=== PATIENT | female | born 1985 | race Caucasian/White ===

== ENCOUNTER 2019-03-30 22:04 | Emergency (ER) | payer OTHER ==
[~2019-03-30] VITALS: Ht 160 cm; Wt 58.1 kg
[2019-03-30 23:29] VITALS: BP 134/80
== END 2019-03-30 23:35 | disposition home or self-care (01) ==
LOC: ER 22:04
DX: J10.1 Influenza due to other identified influenza virus with other respiratory manifestations (principal)

== ENCOUNTER 2019-04-03 00:09 | Emergency (ER) | payer OTHER ==
[~2019-04-03] VITALS: Ht 152.4 cm; Wt 58.1 kg
--- NOTE | ~2019-04-03 | EKG ---
[facility] [place] [address] ELECTROCARDIOGRAM REPORT Name: BEKAH AYON Room #: [facility]#: [id number] Admission: 04/03/19 Attend Phys: Discharge: Date of : 83 Report #: [id number] THIS REPORT FOR: cc: LEANDRO - Telma family physician/PCP LEANDRO - Telma family physician/PCP Octavio Cunningham MD ~ THIS REPORT FOR: //name// [facility] ED Test Date: 2019-04-03 Test Time: 00:42:42 Pat Name: BEKAH BURK Department: Room: Gender: [employer]: no : 1985 Requested By: Dominik Dillon Order Number: [id number] MD: Measurements Intervals Clements Rate: 57 P: -3 CO: 186 QRS: 23 QRSD: 95 T: 22 QT: 429 QTc: 418 Interpretive Statements Sinus rhythm No previous ECG available for comparison [email or web address] By: 004 Octavio Cunningham MD /EPI
[2019-04-03 01:18] LABS: ABSOLUTE NEUTROPHILS 2.5 thou/uL (1.4-8.2); BASOPHILS 0.2 % (0.0-2.0); EOSINOPHILS 1.6 % (0.0-3.0); HEMATOCRIT 38.4 % (37.0-47.0); HEMOGLOBIN 12.7 gm/dL (12.0-15.0); MCH 28.3 pg (26.0-34.0); MCHC 33.1 g/dL (28.0-37.0); MCV 85.4 fL (80.0-100.0); MONOCYTES 5.7 % (1.0-8.0); PLATELET COUNT 340 thou/uL (150-400); POLYS 38.5 % (36.0-66.0); RDW 13.2 % (10.5-14.5); WBC 6.6 thou/uL (4.0-11.0)
[2019-04-03 01:23] LABS: ANION GAP 11 mmol/L (7-16); BUN 10 mg/dL (7-18); CALCIUM 8.8 mg/dL (8.5-10.1); CHLORIDE 102 mmol/L (98-107); CO2 26 mmol/L (21-32); CREATININE 0.5 mg/dL (0.6-1.0); GLUCOSE 82 mg/dL (74-106); POTASSIUM 3.7 mmol/L (3.5-5.1); SODIUM 139 mmol/L (136-145)
[2019-04-03 01:32] LABS: URINE BILIRUBIN NEGATIVE (Negative); URINE BLOOD 3+ (Negative); URINE CLARITY CLEAR; URINE COLOR YELLOW; URINE GLUCOSE-RANDOM* NEGATIVE (Negative); URINE KETONES NEGATIVE (Negative); URINE LEUKOCYTES-REFLEX NEGATIVE (Negative); URINE NITRITE-REFLEX NEGATIVE (Negative); URINE PROTEIN (DIPSTICK) NEGATIVE (Negative)
[2019-04-03 01:34] LABS: ALBUMIN 3.5 g/dL (3.4-5.0); SGOT 49 U/L (15-37); SGPT 70 U/L (30-65); TOTAL BILIRUBIN 0.2 mg/dL (<0.1-1.0); TOTAL PROTEIN 7.9 g/dL (6.4-8.2); TROPONIN-I <0.06 ng/mL (<0.06)
[2019-04-03] MEDS ORDERED: VENTOLIN HFA 1818 GM INH (01:53)
[2019-04-03] MEDS ORDERED: ATIVAN0.5 M1 PO (01:53)
[2019-04-03 02:00] VITALS: BP 116/64
[2019-04-03 02:17] LABS: BACTERIA-REFLEX 1-9 Few /HPF (None Seen); CASTS None Seen /LPF (None Seen); CRYSTALS None Seen /LPF (None Seen); MUCUS 0-3 Light strn/LPF (None Seen); SQUAMOUS 0-3 Few /LPF (0-3); URINE RBC 3-10 Few /HPF (0-2); URINE WBC-REFLEX 0-5 Rare /HPF (0-5)
== END 2019-04-03 02:27 | disposition home or self-care (01) ==
LOC: ER 00:09
PROVIDERS: Emergency Medicine
DX: R06.00 Dyspnea, unspecified (principal); R42 Dizziness and giddiness